=== PATIENT | male | born 1950 | race Two or more races ===

== ENCOUNTER 2020-02-12 10:07 | Inpatient (IN) | payer MEDICARE, OTHER ==
[~2020-02-12] VITALS: Ht 162.6 cm; Wt 86.2 kg
[2020-02-12] MEDS ORDERED: CEFTRIAXONE 1 G in IV DEXTROSE 5% 50 ML IV ONE (10:15)
[2020-02-12] MEDS ORDERED: DEXAMETHASONE SOD PHOSPHATE 4 MG INJ IV ONE (10:15)
[2020-02-12] MEDS ORDERED: methylPREDNISolone SOD SUCC 125 MG/2 ML VIAL IV ONE (10:15)
[2020-02-12] MEDS ORDERED: ALBUTEROL SULFATE 2.5 MG/3 ML NEBU NEB ONE (10:15)
[2020-02-12] MEDS ORDERED: AZITHROMYCIN IV 500 MG in IV DEXTROSE 5% 250 ML IV ONE (10:15)
[2020-02-12] MEDS ORDERED: IV NORMAL SALINE 1000 ML BAG IV ONE ×2 (10:15→11:30)
[2020-02-12] MEDS ORDERED: DEXAMETHASONE SOD PHOSPHATE 10 MG INJ ONE (10:23)
[2020-02-12] MEDS ORDERED: methylPREDNISolone SOD SUCC 125 MG/2 ML VIAL ONE (10:23)
[2020-02-12] MEDS ORDERED: CEFTRIAXONE /D5W 50ML IVPB **ER PYXIS IV ONE ×2 (10:30→10:38)
[2020-02-12] MEDS ORDERED: AZITHROMYCIN 500MG/ D5W 250ML IVPB **ER PYXIS ONLY IV ONE (10:30)
[2020-02-12 10:46] LABS: BASOPHILS % (AUTO) 0.1 % (0.0-2.0); HEMATOCRIT 44.9 % (36.7-47.1); HEMOGLOBIN 14.6 g/dL (12.5-16.3); LYMPHOCYTES # (AUTO) 0.6 K/uL (20.0-40.0); LYMPHOCYTES % (AUTO) 3.9 % (20.5-51.5); MEAN CORPUSCULAR HGB CONC 33 g/dL (32.5-36.3); MEAN CORPUSCULAR VOLUME 83.3 fL (73.0-96.2); MONOCYTES # (AUTO) 0.3 K/uL (2.0-10.0); MONOCYTES % (AUTO) 2.3 % (0.0-11.0); NEUTROPHILS # (AUTO) 13.9 K/uL (1.8-8.9); NEUTROPHILS % (AUTO) 93.7 % (38.5-71.5); PLATELET COUNT (AUTO) 230 K/uL (152-348); WHITE BLOOD COUNT (AUTO) 14.9 K/uL (3.6-10.2)
[2020-02-12 11:08] LABS: ABG BASE EXCESS -5.4 mmol/L; ABG HCO3 20.7 mmol/L; ABG PCO2 42.6 mmHg (35.0-45.0); ABG PH 7.305 (7.350-7.450); ABG SITE RIGHT RADIAL; ABG TOTAL HEMOGLOBIN 13.7 G/dL (13.5-18.0); COHb 1.6 % (0.5-1.5); MetHb 0.3 % (0.0-1.5); O2Hb 88.4 % (94.0-97.0); VENT MODE BIPAP
[2020-02-12] MEDS ORDERED: VANCOMYCIN IV 1,500 MG in IV DEXTROSE 5% 250 ML IV ONE (11:15)
[2020-02-12] MEDS ORDERED: VANCOMYCIN IV 200 ML ONE (11:33)
[2020-02-12] MEDS ORDERED: VANCOMYCIN HCL 500 MG VIAL ONE (11:33)
[2020-02-12] MEDS ORDERED: ASPIRIN 81 MG TAB.CHEW ONE (11:43)
--- NOTE | 2020-02-12 11:44 | NUR ---
Pt changed from BIPAP to Hi flow nasal cannula by RT, tolorating well.
[2020-02-12] MEDS ORDERED: ASPIRIN 81 MG TAB.CHEW PO ONE (11:45)
--- NOTE | 2020-02-12 12:18 | NUR ---
IRA MARTINO spoke to Dr mena for ccu admit.
[2020-02-12 12:19] LABS: ABG HCO3 20.5 mmol/L; ABG PCO2 35.5 mmHg (35.0-45.0); ABG PH 7.379 (7.350-7.450); ABG PO2 35.5 mmHg (75.0-100.0); ABG SITE RIGHT RADIAL; ABG TOTAL HEMOGLOBIN 13.4 G/dL (13.5-18.0); COHb 1.6 % (0.5-1.5); MetHb 0.4 % (0.0-1.5); O2Hb 65.9 % (94.0-97.0); VENT MODE VAPOTHERM
--- NOTE | 2020-02-12 12:20 | NUR ---
Paged cardiology and ER Md spoke to DR Adams.
[2020-02-12 12:29] LABS: BILIRUBIN,TOTAL 0.4 mg/dL (0.2-1.0); POTASSIUM 4.4 mmol/L (3.5-5.1)
--- NOTE | 2020-02-12 12:48 | NUR ---
INFORMATION ON MEDS FROM PARAMEDICS LIMITTED. NO FAMILY MEMBER HAS COME SO FAR.
--- NOTE | 2020-02-12 13:48 | NUR ---
PT's o2 sat lowered to 66%, while using the urinal. Dr Herrera and RT notified. Pt changed to BIPAP by RT per MD order.
--- NOTE | 2020-02-12 14:06 | NUR ---
1015 PT PLACED ON BIPAP 12/5/RATE 16/100% FIO2... 1130 PT PLACED ON HIGH FLOW NASAL CANULA 100% 40 LPM... 1230 PT PLACED ON CPAP 8 AND 100% FIO2... 1345 PT PLACED ON BIPAP 12/7/RATE 16/100% FIO2...
[2020-02-12 14:32] LABS: ABG BASE EXCESS -5.3 mmol/L; ABG HCO3 20.9 mmol/L; ABG PCO2 43.1 mmHg (35.0-45.0); ABG PH 7.303 (7.350-7.450); ABG PO2 41.7 mmHg (75.0-100.0); ABG SITE RIGHT RADIAL; ABG TOTAL HEMOGLOBIN 14.2 G/dL (13.5-18.0); COHb 1.2 % (0.5-1.5); MetHb 0.3 % (0.0-1.5); O2Hb 72.7 % (94.0-97.0); VENT MODE BIPAP
--- NOTE | 2020-02-12 16:05 | NUR ---
Obdulio RN, placed a midline on Pt's RUE. Pt tolorated well.
[2020-02-12 17:47] LABS: ABG HCO3 18.3 mmol/L; ABG PCO2 36.4 mmHg (35.0-45.0); ABG PO2 52.3 mmHg (75.0-100.0); ABG SITE RIGHT RADIAL; ABG TOTAL HEMOGLOBIN 14.7 G/dL (13.5-18.0); COHb 1.1 % (0.5-1.5); MetHb 0.1 % (0.0-1.5); O2Hb 82.8 % (94.0-97.0); VENT MODE BIPAP
[2020-02-12] MEDS ORDERED: DEXL60CA3 PO (17:54)
[2020-02-12] MEDS ORDERED: OLME20TA13 PO (17:54)
[2020-02-12] MEDS ORDERED: AMLO5TAB4 PO (17:54)
[2020-02-12] MEDS ORDERED: EZET10TA15 PO (17:54)
--- NOTE | 2020-02-12 18:00 | NUR ---
Found pt to be diapheratic, tachypnic and with low BP. DR Herrera made aware.
--- NOTE | 2020-02-12 18:20 | NUR ---
[facility]le[facility]edo called per MD request. Please see kleber escobedo flow sheet.
[2020-02-12] MEDS ORDERED: EPINEPHRINE 1:10,000 1 MG/10 ML DISP.SYRIN ONE ×2 (18:28→18:45)
[2020-02-12] MEDS ORDERED: SODIUM BICARBONATE 8.4% 50 MEQ/50 ML DISP.SYRIN IV ONE (18:45)
[2020-02-12] MEDS ORDERED: EPINEPHRINE 1 MG/1 ML AMP ONE (18:45)
[2020-02-12] MEDS ORDERED: ATROPINE SULFATE 1 MG/10 ML DISP.SYRIN ONE (18:45)
[2020-02-12] MEDS ORDERED: CALCIUM CHLORIDE 1 GM/10 ML DISP.SYRIN IVP ONE ×2 (18:45→19:02)
--- NOTE | 2020-02-12 19:07 | NUR ---
Pt prounced by Dr Huff. spoke to Pt's son.
[2020-02-12] MEDS ORDERED: MORPHINE SULFATE 2 MG/1 ML DISP.SYRIN IV PRN (19:15)
[2020-02-12] MEDS ORDERED: HEPARIN SODIUM,PORCINE 5,000 UNITS/ML VIAL SQ SCH (19:15)
[2020-02-12] MEDS ORDERED: ACETAMINOPHEN 325 MG TABLET PO PRN (19:15)
[2020-02-12] MEDS ORDERED: IV NS 1000 ML 1,000 ML IV PRN (19:15)
[2020-02-12] MEDS ORDERED: ONDANSETRON 4 MG/2 ML VIAL IV PRN (19:15)
--- NOTE | 2020-02-12 19:35 | NUR ---
CALLED [facility]. SPOKE TO JOSE. PATIENT NOT [employer]GAN DONOR CANDIDATE. REFERANCE #[id number].
--- NOTE | 2020-02-12 19:44 | NUR ---
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
[2020-02-12] MEDS ORDERED: DOCUSATE SODIUM 100 MG CAPSULE PO SCH (21:00)
--- NOTE | 2020-02-12 22:08 | NUR ---
ET TUBE,IO FROM [facility] D/C'D INTACT, RT ARM MIDLINE AND RT AC IV D/C'D INTACT, PT HAD SHIRT REMOVED AND PLACED IN A LABELD BELONGINGS BAG, NO JEWELRY/DENTURES/HEARING AIDS WERE NOTED OF FOUND, BODY PLACED IN POSTMORDOM BAG, NAME TAG PLACED TO LEFT BIG TOE AND TO ZIPPER OF BODY BAG. BODY WAS THEN PICKED UP BY [facility] DUE TO THE FACT THAT THERE IS NO MORE RROM IN OUR [place],
[2020-02-13] MEDS ORDERED: PANTOPRAZOLE SODIUM 40 MG TABLET.DR PO SCH (07:00)
[2020-02-13] MEDS ORDERED: DEXAMETHASONE SOD PHOSPHATE 4 MG INJ IV ONE (09:00)
[2020-02-13] MEDS ORDERED: AZITHROMYCIN IV 500 MG in IV DEXTROSE 5% 250 ML IV SCH (09:00)
== END 2020-02-12 22:08 | disposition expired | DRG 871 ==
LOC: ER 10:07 → TRANSITION 16:15
PROVIDERS: ADMIT Internal Medicine; ATTEND Internal Medicine
PROC: 5A12012 Performance of Cardiac Output, Single, Manual (ICD-10-PCS; principal; 2020-02-12)
PROC: 05HB33Z Insertion of Infusion Device into Right Basilic Vein, Percutaneous Approach (ICD-10-PCS; 2020-02-12)
DX: A41.89 Other specified sepsis (principal); U07.1 COVID-19; J12.89 Other viral pneumonia; R65.21 Severe sepsis with septic shock; J96.01 Acute respiratory failure with hypoxia; G92 Toxic encephalopathy; I21.A1 Myocardial infarction type 2; N17.0 Acute kidney failure with tubular necrosis; E11.65 Type 2 diabetes mellitus with hyperglycemia; E78.5 Hyperlipidemia, unspecified; I11.0 Hypertensive heart disease with heart failure; I50.89 Other heart failure; Z82.49 Family history of ischemic heart disease and other diseases of the circulatory system; E66.3 Overweight; Z68.32 Body mass index [BMI] 32.0-32.9, adult; K21.9 Gastro-esophageal reflux disease without esophagitis; I46.9 Cardiac arrest, cause unspecified
CPT/HCPCS: 36415; 36600; 70030-TC; 71045; 83605; 85025; 87040; 93005; 94660; A4663; G0378; J0171; J0456; J0461; J0696; J1100; J2930; J3370; J3490; J7030; U0003